=== PATIENT | female | born 1975 | race Caucasian/White ===

== ENCOUNTER 2020-07-28 13:36 | Emergency (ER) | payer MEDICAID, SELFPAY ==
[~2020-07-28] VITALS: Ht 160 cm; Wt 99.8 kg
--- NOTE | 2020-07-28 13:57 | NUR ---
RECEIVED AND IN ROOM 8. JOSE DANIEL TO ASSUME CARE
[2020-07-28 14:00] VITALS: BP_SYST 124
--- NOTE | 2020-07-28 14:25 | NUR ---
DR SALGUERO IN TO ASSESS
--- NOTE | 2020-07-28 14:39 | NUR ---
HERE FROM HOME FOR SORE THROAT AND COVID EXPOSURE, NO DISTRESS, RESP UNLABORED
[2020-07-28 14:40] VITALS: BP_SYST 124
--- NOTE | 2020-07-28 14:40 | NUR ---
Patient given written and verbal discharge instructions and verbalizes understanding. ER MD discussed with patient the results and treatment provided. Patient in stable condition. ID arm band removed. Patient educated on pain management and to follow up with PMD. Pain Scale []. Opportunity for questions provided and answered. Medication side effect fact sheet provided.
== END 2020-07-28 14:40 | disposition home or self-care (01) ==
LOC: SED 13:36
DX: R07.0 Pain in throat (principal); R05 Cough; Z20.828 Contact with and (suspected) exposure to other viral communicable diseases
CPT/HCPCS: 99283; C9803; U0003